=== PATIENT | female | born 1995 | race Caucasian/White ===

== ENCOUNTER → 2017-03-22 | Outpatient (CLI) | payer OTHER | LOC: FIMAGING 08:09 | PROVIDERS: ATTEND Internal Medicine | DX: R13.10 Dysphagia, unspecified (principal) ==

== ENCOUNTER 2017-06-21 18:24 | Emergency (ER) | payer OTHER ==
--- NOTE | 2017-06-21 18:31 | EDPHY ---
H & P Time Seen by Provider: 06/21/17 18:26 HPI/ROS: CHIEF COMPLAINT: Right ankle pain slip on ice HISTORY OF PRESENT ILLNESS: 21-year-old female arrives via private vehicle complaining of acute right ankle pain after she slipped and rolled her foot on eyes. Complaining of ankle pain. Intact skin. No paresthesia. No fall from height. No further calcaneus pain. No 5th metatarsal pain. PHYSICAL EXAM (Prior to examination, patient consented to physical exam, hands were washed and my usual and customary physical exam procedures followed) 1) GENERAL: Well-developed, well-nourished, alert and oriented. Appears uncomfortable, crying. 2) HEAD: Normocephalic 3) HEENT: Pupils equal, round, reactive to light bilaterally. 4) LUNGS: Breathing comfortably. 5) MUSCULOSKELETAL: Soft tissue swelling to the lateral malleolus. Tenderness to palpation at same location. Tender to palpation fibular head..5th MT nontender negative Murillo test, compartments soft calcaneus nontender. 6) SKIN: Intact no tenting. No puncture wounds. No bleeding. 7) VASCULAR: DP,PT pulses and cap refill present and brisk DIFFERENTIAL DIAGNOSIS: in no particular order including but not limited to fracture, sprain, compartment syndrome Procedure: Crutches indications for crutch use discussed with patient. Patient fitted for crutches by ER staff. Observed ambulating with crutches. I think the patient has the capacity to safely use crutches. Usual and customary crutch walking precautions provided Procedure: Splint A splint was applied by ER dealer support technician. After application of the splint I returned and re-examined the patient. The splint was adequately immobilizing the joint and distal to the splint the patient's circulation and sensation were intact. Patient shows no signs of compartment syndrome. Was given orthopedic precautions. (Hilda Mcguire) Constitutional: Initial Vital Signs Heart Rate 68 06/21/17 18:44 Respiratory Rate 18 06/21/17 18:44 Blood Pressure 111/68 06/21/17 18:44 O2 Sat (%) 98 06/21/17 18:44 O2 Delivery Mode Room Air Allergies/Adverse Reactions: No Known Allergies Allergy (Unverified 06/21/17 18:37) Home Medications: Medication Instructions Recorded Hydrocodone/APAP 5/325 [[place] 1 tab PO Q6 PRN #10 tab 06/21/17 5/325 (RX)] MDM/Departure - MDM Procedures: Procedure: Fracture treatment. The patient had x-rays taken and I confirmed that the patient had a close trimalleolar fracture. A [address] above the knee Ortho Glass splint with generous cast padding was applied by ER dealer support technician. After application of the splint I returned and re-examined the patient. The splint was adequately immobilizing the joint and distal to the splint the patient's circulation and sensation were intact. Patient shows no signs of compartment syndrome. Was given orthopedic precautions. (Hilda Mcguire) Medications Given: Discontinued Medications Hydrocodone Bitart/Acetaminophen ([place] 5/325mg Prepack#6) 1 btl TAKEHOME EDNOW ONE Stop: 06/21/17 19:46 Last Admin: 06/21/17 20:16 Dose: 1 btl Hydrocodone Bitart/Acetaminophen ([place] 5/325) 1 tab PO EDNOW ONE Stop: 06/21/17 20:15 Last Admin: 06/21/17 20:16 Dose: 1 tab Fentanyl (Sublimaze) 50 mcg IVP EDNOW ONE Stop: 06/21/17 18:38 Last Admin: 06/21/17 18:42 Dose: 50 mcg Ondansetron HCl (Zofran) 4 mg IVP EDNOW ONE Stop: 06/21/17 18:38 Last Admin: 06/21/17 19:20 Dose: Not Given ED Course/Re-evaluation: This patient was re-evaluated with serial examinations. The patient was splinted. Slight manipulation by myself performed during splinting process to achieve more anatomic alignment. Her compartments remain soft and she is neurovascular intact. She has been informed that she is at risk of compartment syndrome although she has no evidence of his currently. Recommend elevation, usual and customary orthopedic precautions and instructions provided and follow up with Orthopedics stressed and given this information. She feels comfortable being discharged. All questions and concerns addressed by myself. Care of patient under supervision of secondary supervising physician Dr Tucker . ( Hilda Mcguire) I did not see this patient while she was in the emergency department. However her care was discussed with the PA while the patient was in the department. I agree with treatment plan and management (CaitlinOmar Gutierrez) - Depart Disposition: Home, Routine, Self-Care Clinical Impression: Fall from slipping on ice, Closed trimalleolar fracture of ankle Condition: Good Instructions: Hydrocodone/Acetaminophen (By mouth), Ankle Fracture (ED) Additional Instructions: Return to the ER immediately if you experience discoloration, have worsening pain, numbness, tingling, or any other symptoms that concern you. If you received x-rays in the emergency department today, be advised, that ligamentous , tendon, muscular, and other non-bony injury cannot be fully ruled out. Try to keep your affected extremity elevated above the level of your chest, and keep cold packs on the affected area, for the next 48 hours. You have a closed trimalleolar fracture of your ankle. This will need further evaluation by Orthopedics. Prescriptions: Hydrocodone/APAP 5/325 [[place] 5/325 (RX)] 1 tab PO Q6 PRN #10 tab PRN Reason: Pain, Severe Referrals: NONE *PRIMARY CARE P,. [Primary Care Provider] - As per Instructions Bogdan Bennett MD [Medical Doctor] - As per Instructions
[2017-06-21] MEDS ORDERED: fentaNYL 100 MCG/2 ML INJ ONE (18:36)
[2017-06-21] MEDS ORDERED: ONDANSETRON 4 MG/2 ML VIAL IVP ONE (18:37)
[2017-06-21] MEDS ORDERED: fentaNYL 100 MCG/2 ML INJ IVP ONE (18:37)
[2017-06-21 18:45] VITALS: RESP 18
[2017-06-21] MEDS ORDERED: HYDROCOD/APAP 5/325 PREPACK#6 BTL TAKEHOME ONE (19:45)
[2017-06-21] MEDS ORDERED: HYDROCODONE/APAP 5/325 TAB PO ONE (20:14)
[2017-06-21] MEDS ORDERED: HYDROCODONE/APAP 5/325 TAB ONE (20:15)
[2017-06-21 21:20] VITALS: PULSE 60; O2SAT 100
[2017-06-21 21:29] VITALS: BP 74/53
== END 2017-06-21 22:00 | disposition home or self-care (01) ==
DX: S82.851A Displaced trimalleolar fracture of right lower leg, initial encounter for closed fracture (principal); W00.0XXA Fall on same level due to ice and snow, initial encounter
CPT/HCPCS: 96374; J3010

== ENCOUNTER 2017-06-30 09:39 | Day surgery (SDC) | payer OTHER ==
[2017-06-30] MEDS ORDERED: LR 1,000 ML IV ONE (10:13)
[2017-06-30 10:34] VITALS: PULSE 90
[2017-06-30] MEDS ORDERED: BUPIVACAINE 0.5% 10 ML SDV ONE (10:58)
[2017-06-30] MEDS ORDERED: BACITRACIN 50,000 UNITS/10 ML SYR IRR ONE (10:59)
[2017-06-30] MEDS ORDERED: POLYMYXIN B SULFATE 500,000 UNIT/10 ML SYR IRR ONE (10:59)
--- NOTE | 2017-06-30 11:06 | PDHPUP ---
History & Physical Update H&P update statement: This history and physical update is based on an assessment of the patient which was completed after admission or registration (within 24 hours), but prior to the surgery/procedure. H&P update: H&P reviewed & patient examined, no change in patient's condition since H&P completed
[2017-06-30] MEDS ORDERED: MIDAZOLAM 2 MG/2 ML VIAL ONE ×2 (11:43→14:33)
[2017-06-30] MEDS ORDERED: fentaNYL 100 MCG/2 ML INJ ONE ×6 (11:44→15:32)
[2017-06-30] MEDS ORDERED: MIDAZOLAM 2 MG/2 ML VIAL IVP ONE (11:44)
[2017-06-30] MEDS ORDERED: fentaNYL 100 MCG/2 ML INJ IVP ONE (11:45)
--- NOTE | 2017-06-30 11:46 | PDANEPAE ---
ANE History of Present Illness r ankle fracture ANE Past Medical History - Cardiovascular History Hx Hypertension: No Hx Arrhythmias: No Hx Chest Pain: No Hx Coronary Artery / Peripheral Vascular Disease: No Hx CHF / Valvular Disease: No Hx Palpitations: No Cardiovascular History Comment: SLIGHT HEART MURMUR - Pulmonary History Hx COPD: No Hx Asthma/Reactive Airway Disease: Yes Hx Recent Upper Respiratory Infection: No Hx Oxygen in Use at Home: No Hx Sleep Apnea: No Sleep Apnea Screening Result - Last Documented: Negative Pulmonary History Comment: ASTHMA ENVIRONMENTAL TRIGGERS. NO INHALER CURRENTLY IN USE - Neurologic History Hx Cerebrovascular Accident: No Hx Seizures: No Hx Dementia: No - Endocrine History Hx Diabetes: No - Renal History Hx Renal Disorders: No - Liver History Hx Hepatic Disorders: No - Neurological & Psychiatric Hx Hx Neurological and Psychiatric Disorders: No - Cancer History Hx Cancer: No - Congenital Disorder History Hx Congenital Disorders: No - GI History Hx Gastrointestinal Disorders: Yes Gastrointestinal History Comment: GERD/CELIAC MANAGED WITH DIET - Chronic Pain History Chronic Pain: No - Surgical History Prior Surgeries: TONSILLECTOMY ANE Review of Systems Review of Systems: - Exercise capacity METS (RN): 4 METS ANE Patient History - Allergies Allergies/Adverse Reactions: gluten Allergy (Verified 06/29/17 14:56) GI AND NEUROLOGICAL ISSUES lactose Allergy (Verified 06/29/17 14:56) GI Penicillins Allergy (Verified 06/29/17 14:55) Hives - Home Medications Home Medications: ACETAMINOPHEN 1,000 mg PRN 06/29/17 [Last Taken 06/30/17 08:00] Bcp DAILY06 06/29/17 [Last Taken 06/30/17] - NPO status NPO Since - Liquids (Date): 06/30/17 NPO Since - Liquids (Time): 07:30 NPO Since - Solids (Date): 06/29/17 NPO Since - Solids (Time): 22:00 - Smoking Hx Smoking Status: Never smoked - Family Anes Hx Family Hx Anesthesia Complications: NEG ANE Labs/Vital Signs - Vital Signs Blood Pressure: 107/78 Heart Rate: 90 Respiratory Rate: 14 O2 Sat (%): 97 Height: 167.64 cm Weight: 70.307 kg ANE Physical Exam - Airway Neck exam: FROM Mallampati Score: Class 1 Mouth exam: normal dental/mouth exam - Pulmonary Pulmonary: no respiratory distress - Cardiovascular Cardiovascular: regular rate and rhythym - ASA Status ASA Status: II ANE Anesthesia Plan Anesthesia Plan: general endotracheal anesthesia, GA w LMA Regional Anesthesia: single shot NB, popliteal SNB
[2017-06-30] MEDS ORDERED: HYDROmorphONE/DILAUDID 2 MG/ML INJ ONE ×2 (11:59→14:50)
[2017-06-30] MEDS ORDERED: PROPOFOL 200 MG/20 ML VIAL ONE (12:01)
[2017-06-30] MEDS ORDERED: DEXAMETHASONE 4 MG/ML VIAL ONE (12:02)
[2017-06-30] MEDS ORDERED: ONDANSETRON 4 MG/2 ML VIAL ONE (12:02)
[2017-06-30] MEDS ORDERED: BUPIVACAINE 0.25% 30 ML SDV ONE (12:12)
[2017-06-30] MEDS ORDERED: ceFAZolin 1 GM VIAL ONE ×2 (12:15)
[2017-06-30] MEDS ORDERED: PROMETHAZINE HCL 25 MG/ML INJ IVP PRN (14:14)
[2017-06-30] MEDS ORDERED: ONDANSETRON 4 MG/2 ML VIAL IVP PRN (14:14)
[2017-06-30] MEDS ORDERED: NALOXONE HCL 0.4 MG/ML INJ IVP PRN (14:14)
--- NOTE | 2017-06-30 14:47 | POSTANESTH ---
Post Anesthetic Evaluation Cardiovascular Status: Normal, Stable Respiratory Status: Normal, Stable Level of Consciousness/Mental Status: Can Participate in Eval Pain Control: Adequate, Prn Tx Ordered Nausea/Vomiting Control: Adequate, Prn Tx Ordered Complications Possibly Related to Anesthesia: None Noted
--- NOTE | 2017-06-30 14:49 | POSTOPPROG ---
Post Op Note Date of Operation: 06/30/17 Surgeon: Bogdan Bennett Anesthesia: GET(General Endotracheal) Pre-op Diagnosis: Right trimal ankle fx Post-op Diagnosis: same Procedure: Right ankle ORIF - lat/med mal Inf/Abcess present in the surg proc area at time of surgery?: No EBL: Minimal
[2017-06-30] MEDS: HYDROmorphONE/DILAUDID 1 MG/ML INJ IVP PRN ×6 (14:55→16:23)
[2017-06-30] MEDS: fentaNYL 100 MCG/2 ML INJ IVP PRN ×4 (15:07→15:59)
[2017-06-30] MEDS ORDERED: DIAZEPAM 5 MG/ML 1 ML SYR ONE (15:37)
[2017-06-30 15:50] VITALS: TEMP 98.4
[2017-06-30] MEDS ORDERED: DIAZEPAM 5 MG/ML 1 ML SYR IVP PRN (16:04)
[2017-06-30] MEDS ORDERED: HYDROCODONE/APAP 5/325 TAB ONE (16:09)
[2017-06-30] MEDS: HYDROCODONE/APAP 5/325 TAB PO PRN ×2 (16:12→16:37)
[2017-06-30 16:17] VITALS: RESP 14
--- NOTE | 2017-06-30 16:39 | GOP ---
[f rep st] OPERATIVE REPORT DATE OF OPERATION: 06/30/2017 SURGEON: Bogdan Bennett MD ANESTHESIA: General. PREOPERATIVE DIAGNOSIS: Right ankle trimalleolar fracture. POSTOPERATIVE DIAGNOSIS: Right ankle trimalleolar fracture. PROCEDURE PERFORMED: Right ankle lateral and medial malleolus open reduction and internal fixation, closed treatment of the posterior malleolus with manipulation and fluoroscopic supervision greater th an 1 hour. FINDINGS: SPECIMENS: None. DESCRIPTION OF PROCEDURE: Patient was seen in the preoperative holding area. Right lower extremity was identified and marked. Patient was then taken to the operating room and placed supine on the ope rating table. After smooth induction of general anesthesia, the right lower extremity was prepped an d draped in the usual sterile fashion. A tourniquet was applied to the thigh prior to draping. Oper ative time-out was performed. Patient's name, laterality of the procedure, implants, antibiotics, an d allergies were all confirmed. The right lower extremity then was exsanguinated. Tourniquet was in flated to 250 mmHg. 0.25% Marcaine with epinephrine was injected into the incision sites over the lateral medial malleolu s. Sharp skin dissection was made through the skin and carefully through the soft tissue, down to th e fibula and lateral malleolus. The superficial peroneal nerve never entered the surgical field. Pa tient's fracture was quite distal near the level of the syndesmosis and hockey stick shaped. The fra cture site was irrigated and debrided of hematoma and periosteum was cleared from the edges of the fr acture. The fracture was then reduced with a pointed reduction clamp. A 3 mm interfragmentary lag s crew was placed from anterior to posterior. A neutralization plate was then placed laterally with 3 distal locking screws and 3 proximal cortical screws. Reduction and hardware placement were all done under fluoroscopic guidance. We then turned our attention to the medial malleolus. A curvilinear i ncision over the anterior third aspect of the medial malleolus was made through skin and soft tissue. The greater saphenous vein and long saphenous nerve were identified and retracted posteriorly. The fracture site and ankle joint were copiously debrided. No talar dome lesions were identified. Plan tar reduction clamp was then used to anatomically reduce the medial malleolus. This was confirmed un ginette fluoroscopic guidance. Two guidewires were then placed at an angle from distal to proximal and o sajan drilled. Two cannulated 40 mm 4.0 mm in diameter screws were placed over the guidewires through the medial malleolus across the fracture site. This was also performed under x-ray guidance. K-wire s and reduction clamp were removed. Next, a Cotton test was performed with a reduction clamp on the lateral malleolus. The syndesmosis was found to be stable. The posterior malleolus reduced anatomic ally with reduction of the medial and lateral malleoli. The wounds were then copiously irrigated. D eep soft tissue was closed with 0 Vicryl, subcutaneous soft tissue closed with 2-0 Vicryl, and skin w ith 3-0 nylon. The tourniquet was taken down prior to closure and hemostasis was achieved. This was at 74 minutes. Dressings consisted of Xeroform, 4 x 4s, Webril, posterior mold splint, and Jamison wrap . At the end of the case, all surgical counts were correct. I was present for the entirety of the p rocedure. All critical portions of the procedure were performed by myself. I was immediately availa ble for emergency cross-coverage. COMPLICATIONS: None. TOURNIQUET TIME: 74 minutes. IMPLANTS: Include an Arthrex titanium 4-hole locking fibular plate x1, 3 distal locking screws, 3 pr oximal cortical screws, 1 lag screw, and two 4.0, 40 mm cannulated medial malleolus screws. Implants are all titanium. INDICATIONS FOR PROCEDURE: Patient had a slip on ice with a twist and fall injury to her right lower extremity on June 21. She was seen in the emergency department, diagnosed with a fracture and p laced into a splint. She was seen in clinic. We discussed risks, benefits, and treatment options. She elected to proceed with surgical fixation. All questions were answered. /[id number]/MODL
[2017-06-30 17:33] VITALS: BP 114/74; O2SAT 95
== END 2017-06-30 17:34 | disposition home or self-care (01) ==
LOC: FSGY 09:39
PROVIDERS: ATTEND Orthopaedic Surgery
PROC: 0QSJ04Z Reposition Right Fibula with Internal Fixation Device, Open Approach (ICD-10-PCS; principal; 2017-06-30 11:00)
PROC: BQ1G1ZZ Fluoroscopy of Right Ankle using Low Osmolar Contrast (ICD-10-PCS; principal; 2017-06-30 11:00)
DX: S82.851A Displaced trimalleolar fracture of right lower leg, initial encounter for closed fracture (principal); W00.0XXA Fall on same level due to ice and snow, initial encounter; Y93.01 Activity, walking, marching and hiking; D64.9 Anemia, unspecified; J45.909 Unspecified asthma, uncomplicated; K21.9 Gastro-esophageal reflux disease without esophagitis
CPT/HCPCS: C1713; J0171; J0690; J1100; J1170; J2250; J2405; J2704; J3010; J3360

== ENCOUNTER 2017-10-16 18:04 | Emergency (ER) | payer OTHER ==
[2017-10-16] MEDS ORDERED: FAMOTIDINE 20 MG in NS 100 ML IV ONE (18:24)
[2017-10-16] MEDS ORDERED: methylPREDNISolone SOD SUCC 125 MG/2 ML VIAL IVP ONE (18:24)
--- NOTE | 2017-10-16 18:24 | EDPHY ---
H & P Time Seen by Provider: 10/16/17 18:13 HPI/ROS: CHIEF COMPLAINT: Allergic reaction HISTORY OF PRESENT ILLNESS: Patient is a 22-year-old female with a history of allergic reaction the presents emergency department after developing a rash with hives. Patient is seen by an emblem drawer in. She gets immunology shots monthly. This is or 7-month-old shots. 1 hr after receiving her shot today she developed diffuse rash. She feels swelling in the past between her nose and mouth. She has mild shortness of breath. No swelling of her tongue or mouth. Patient states she was intubated as a child for her allergies. The patient reports that she has"an allergy to everything." Patient took 2 Renee today. No other medications. REVIEW OF SYSTEMS: My complete review of systems is negative except as mentioned in the HPI. Past Medical/Surgical History: Allergic reaction, asthma Past surgical history: Right ankle surgery Social history: Patient does not smoke Smoking Status: Never smoked Physical Exam: Vitals noted GENERAL: Mild acute distress, alert. Anxious. HEENT: See skin exam. Mild facial swelling. Uvula is midline. No tongue swelling. Eyes normal to inspection, normal pharynx, no signs of dehydration. NECK: No thyromegaly, no lymphadenopathy, supple. RESPIRATORY: Clear to auscultation bilaterally, no rales, rhonchi or wheezing. CVS: Regular rate and rhythm, no rubs, murmurs, or gallops. ABDOMEN: Soft, nontender, nondistended, no organomegaly. BACK: Normal to inspection, no CVA tenderness. SKIN: Diffuse hives, warm, dry. No pallor. EXTREMITIES: No pedal edema, no calf tenderness, no Homans sign or cords, no joint swelling. NEURO/PSYCH: Alert and oriented x3, anxious, normal motor sensory exam. No obvious cranial nerve deficit. Constitutional: Initial Vital Signs Temperature (C) 36.4 C 10/16/17 18:09 Heart Rate 85 10/16/17 18:09 Respiratory Rate 18 10/16/17 18:09 Blood Pressure 139/76 H 10/16/17 18:09 O2 Sat (%) 95 10/16/17 18:09 O2 Delivery Mode Room Air Allergies/Adverse Reactions: gluten Allergy (Verified 06/29/17 14:56) GI AND NEUROLOGICAL ISSUES lactose Allergy (Verified 06/29/17 14:56) GI Penicillins Allergy (Verified 06/29/17 14:55) Hives Home Medications: Medication Instructions Recorded ACETAMINOPHEN 1,000 mg PRN 06/29/17 Bcp DAILY06 06/29/17 predniSONE 20 mg PO DAILY 4 Days tab 10/16/17 Medical Decision Making ED Course/Re-evaluation: In the emergency department I met the patient on arrival. I discussed the plan with the patient and answered all her questions. She was given Solu-Medrol 125 mg IV, Benadryl 50 mg IV, and Pepcid 20 mg IV for allergic reaction. I do not feel she needs epinephrine at this time. Differential Diagnosis: My differential includes but is not limited to allergic reaction, anaphylaxis, allergy, medication reaction - Data Points Medications Given: Discontinued Medications Diphenhydramine HCl (Benadryl Injection) 50 mg IVP EDNOW ONE Stop: 10/16/17 18:25 Last Admin: 10/16/17 18:26 Dose: 50 mg Famotidine 20 mg/ Sodium (Chloride) 102 mls @ 408 mls/hr IV EDNOW ONE Stop: 10/16/17 18:38 Last Admin: 10/16/17 18:59 Dose: 102 mls Methylprednisolone Sodium Succinate (Solu-Medrol) 125 mg IVP EDNOW ONE Stop: 10/16/17 18:25 Last Admin: 10/16/17 18:26 Dose: 125 mg Departure - Departure Disposition: Home, Routine, Self-Care Clinical Impression: Acute anaphylaxis Qualifiers: Encounter type: initial encounter Qualified Code(s): T78.2XXA - Anaphylactic shock, unspecified, initial encounter Condition: Good Instructions: Anaphylaxis (ED) Additional Instructions: Return with worsening symptoms or any other concerns. Referrals: NONE *PRIMARY CARE P,. [Primary Care Provider] - As per Instructions Prescriptions: predniSONE 20 mg PO DAILY 4 Days tab
[2017-10-16 19:51] VITALS: BP 109/73
[2017-10-16] MEDS ORDERED: RANITIDINE 50 MG/2 ML VIAL ONE (20:33)
[2017-10-16] MEDS ORDERED: methylPREDNISolone SOD SUCC 125 MG/2 ML VIAL ONE (20:33)
== END 2017-10-16 19:59 | disposition home or self-care (01) ==
DX: T78.2XXA Anaphylactic shock, unspecified, initial encounter (principal); J45.909 Unspecified asthma, uncomplicated
CPT/HCPCS: 96365; J1200; J2780; J2930